=== PATIENT | female | born 1950 | race Caucasian/White ===

== ENCOUNTER 2018-11-28 15:47 | Emergency (ER) | payer BC, MEDICAID ==
[~2018-11-28] VITALS: Ht 157.5 cm; Wt 64.7 kg
[~2018-11-28 15:47] MED LIST: GLIM2TAB PO; GUAI-637 PO; METF500T24 PO
[2018-11-28 15:50] VITALS: Ht 157.5 cm; Wt 64.7 kg
[2018-11-28] MEDS ORDERED: SOD CHLORIDE 0.9% 1,000 ML IV STA (16:07)
[2018-11-28] MEDS ORDERED: LORAZEPAM 2 MG INJ IV ONE (16:30)
[2018-11-28] MEDS ORDERED: MECLIZINE 12.5 MG TAB PO ONE (16:30)
--- NOTE | 2018-11-28 16:33 | ERD ---
ER Documentation Chief Complaint Chief Complaint C/O LIGHTHEADNESS/DIZZINESS TODAY 7AM HPI 68-year-old female, family is interpreting. The patient describes that she woke up this morning with a room spinning sensation. She describes the room is spinning every time she moves her head from side to side. She describes associated nausea but no vomiting. She does have a very mild frontal throbbing headache. Gradual in onset. She denies any chest pain or shortness of breath, no slurred speech, no motor weakness, no ataxia. ROS All systems reviewed and are negative except as per history of present illness. Medications Home Meds Active Scripts Meclizine Hcl* (Meclizine Hcl*) 25 Mg Tablet, 25 MG PO Q8H PRN for DIZZINESS, #30 TAB Prov:CHRISTOPHER CLAYTON MD 11/28/18 Guaifenesin* (Robitussin*) 100 Mg/5 Ml Syrup, 100 MG PO Q6H PRN for COUGH for 7 Days, ML Prov:GIANNI PIERRE NP 08/03/14 Reported Medications Glimepiride* (Glimepiride*) 2 Mg Tablet, 2 MG PO DAILY, TAB 07/29/14 Metformin Hcl* (Metformin Hcl*) 500 Mg Tablet, 500 MG PO BID, TAB 07/29/14 Allergies Allergies: Coded Allergies: No Known Allergy (Unverified , 07/30/14) PMhx/Soc History of Surgery: Yes (GALLBLADDER) Anesthesia Reaction: No Hx Neurological Disorder: No Hx Respiratory Disorders: No Hx Cardiac Disorders: Yes (HYPERTENSION; HYPERCHOLESTEROLEMIA; DIABETES MELLITUS) Hx Psychiatric Problems: No Hx Miscellaneous Medical Probl: No Hx Alcohol Use: No Hx Substance Use: No Hx Tobacco Use: No Smoking Status: Never smoker FmHx Family History: No diabetes Physical Exam Vitals Vital Signs Date Temp Pulse Resp B/P (MAP) Pulse Ox O2 O2 Flow FiO2 Time Delivery Rate 11/28/18 65 15 135/81 96 Room Air 17:00 (99) 11/28/18 97.8 63 18 184/77 100 15:50 (112) Physical Exam General: Well developed, well nourished, no acute distress Head: Normocephalic, atraumatic. Eyes: Pupils equally reactive, EOM intact ENT: Moist mucous membranes Neck: Supple, no lymphadenopathy Respiratory: Lungs clear bilaterally, no distress Cardiovascular: RRR, no murmurs, rubs, or gallops Abdominal: Soft, non-tender, non-distended, no peritoneal signs : Deferred MSK: No edema, no unilateral swelling, 5/5 strength Neurologic: Alert and oriented, moving all extremities, normal speech, no focal weakness, no cerebellar signs, reproducible horizontal nystagmus worse to the right. No vertical or rotary nystagmus. Normal rapid alternating movements. Skin: No rash Psych: Normal mood Results 24 hrs Laboratory Tests Test 11/28/18 16:10 Bedside Glucose 97 mg/dL Current Medications Medications Dose Sig/Rock Start Time Status Last (Trade) Ordered Route PRN Stop Time Admin Dose Reason Admin Sodium 1,000 ml @ Q1H STAT 11/28/18 DC 11/28/18 Chloride 1,000 mls/hr IV 16:07 16:26 11/28/18 17:06 Lorazepam 0.5 mg ONCE ONCE 11/28/18 DC 11/28/18 (Ativan) IV 16:30 16:26 11/28/18 16:31 Meclizine 25 mg ONCE ONCE 11/28/18 DC 11/28/18 HCl PO 16:30 16:26 (Antivert) 11/28/18 16:31 Procedures/MDM EKG, MONITORS, & DIAGNOSTIC IMAGING: CT brain: IMPRESSION: 1. No evidence of acute intracranial pathology. 2. 13 x 6.3 mm densely calcified left temporal meningioma. No mass or mass effect. LAB INTERPRETATION: I reviewed the laboratory testing and it shows no evidence of acute process MEDICAL DECISION MAKING: The patient symptoms are very consistent with likely peripheral vertigo. She exhibits no signs or symptoms concerning for central vertigo. She has reproducible symptoms and horizontal nystagmus. Given the mild headache I do believe CT of the brain would be appropriate but low concern for intracranial process. Patient's blood pressure was elevated (>120/80) but appears stable without evidence of hypertensive emergency or urgency. The patient was counseled about the risks of hypertension and urged to pursue outpatient monitoring and therapy within a week with their primary care physician. ER COURSE: * Ativan and meclizine provided * Symptoms improved. * Meningioma is likely nonspecific and can be followed up on an outpatient basis CONSULTATION: None DISPOSITION PLAN: The patient does not have an identifiable emergent medical condition that warrants inpatient hospitalization at this time. The patient is deemed safe for discharge with outpatient follow-up. We discussed follow up with the patient's primary care doctor within 24 to 48 hours as needed. We also discussed return to the emergency room for worsening symptoms or worsening condition. Outpatient referral: None required Discharge Medications: Meclizine Departure Diagnosis: Primary Impression: Meningioma Additional Impression: Peripheral vertigo Laterality: unspecified laterality Qualified Codes: H81.399 - Other peripheral vertigo, unspecified ear Condition: Stable CHRISTOPHER CLAYTON MD Nov 28, 2018 16:33
[2018-11-28] MEDS ORDERED: MECL-77 PO (17:46)
[2018-11-28 18:16] VITALS: BP 142/77; PULSE 76; RESP 19
== END 2018-11-28 18:17 | disposition home or self-care (01) ==
LOC: E/R 15:47
DX: H81.399 Other peripheral vertigo, unspecified ear (principal); D32.9 Benign neoplasm of meninges, unspecified; E11.9 Type 2 diabetes mellitus without complications; I10 Essential (primary) hypertension; Z79.84 Long term (current) use of oral hypoglycemic drugs
CPT/HCPCS: 70450; 82962; 96374; J2060; J7030; Z7502; Z7610